=== PATIENT | female | born 1945 | race Caucasian/White ===

== ENCOUNTER → 2017-11-12 11:32 | Outpatient (CLI) | payer OTHER, SELFPAY ==
--- NOTE | 2017-11-12 | DI.MRI.S_ITS ---
PROCEDURE: MR KNEE RT WO CON INDICATIONS: OSTEOARTHRITIS OF RIGHT KNEE TECHNIQUE: Noncontrast sagittal PD fast spin echo and T2 fast spin echo with fat saturation, sagittal 3-D FLASH with fat saturation; coronal T1 spin echo and PD fast spin echo with fat saturation, and axial PD fast spin echo with fat saturation through the knee. COMPARISON: [facility], CR, XR KNEE ARTHRITIC SERIES RT, 10/20/2017, 11:00. FINDINGS: Image quality: Excellent. Menisci: The anterior and posterior horns of the medial meniscus are quite small in size, suggestive of post-meniscectomy sequelae. Irregular high T2 signal intensity within the anterior and posterior horns of the medial meniscus is present, compatible with sequelae of remote tears. There is medial extrusion of the medial meniscus. The lateral meniscus demonstrates linear high signal intensity horizontally traversing the posterior horn and body, demonstrating inferior and superior articular surface extension, indicating complex tearing. Cruciate ligaments: The posterior cruciate ligament is intact. The anterior cruciate ligament is severely attenuated. Medial structures: The medial collateral ligament appears intact. The posterior oblique ligament, semimembranosus tendon insertions, oblique popliteal ligament, and meniscocapsular junction appear intact. Visualized portions of the pes anserinus tendons appear normal. No abnormal bursal fluid. Lateral structures: Small amount of fluid signal intensity at the femoral insertion site of the lateral collateral ligament is present.. The popliteus tendon appears normal; the popliteofibular ligament appears intact. The posterosuperior and anteroinferior popliteomeniscal fascicles appear intact. The arcuate and fabellofibular ligaments appear intact, on either side of the lateral inferior geniculate artery. Iliotibial band appears normal. Anterior structures: The quadriceps and patellar tendons appear intact. Patellar alignment is normal. No femoral trochlear dysplasia or ventral trochlear prominence. No edema in the infrapatellar fat pad. Bones and cartilage: No bone marrow contusions or fractures. Severe tricompartmental periarticular osteophyte formation. Subchondral degenerative marrow edema and intraosseous ganglia within the weightbearing aspects of the medial femoral condyle, medial tibial plateau, lateral patellar facet, and lateral femoral trochlea are present. Severe diffuse articular cartilage loss overlies the weightbearing aspects of the medial femoral condyle and medial tibial plateau. Moderate to severe diffuse articular cartilage loss overlies the weightbearing aspects of the lateral femoral condyle and lateral tibial plateau. Severe articular cartilage loss diffusely overlies the patellar apex, lateral patellar facet, and lateral femoral trochlea. Joint space: There is a moderate knee joint effusion and a moderate Gould's cyst. Normal appearing synovial plicae are incidentally noted. IMPRESSION: 1. Severe tricompartmental osteoarthritis with associated articular cartilage loss as above. 2. Medial and lateral meniscal tearing. Present post meniscectomy sequelae involving the medial meniscus. 3. Knee joint effusion and Gould's cyst. 4. Partial-thickness lateral collateral ligament tear. 5. High-grade partial-thickness tearing of the anterior cruciate ligament. Dictated by: Dylan Govea M.D. on 11/12/2017 at 12:47 Approved by: Dylan Govea M.D. on 11/12/2017 at 12:51
== END ==
PROVIDERS: PCP Family Medicine; Visit Provider Orthopaedic Surgery
DX: M17.11 Unilateral primary osteoarthritis, right knee (principal); S83.281A Other tear of lateral meniscus, current injury, right knee, initial encounter; S83.241A Other tear of medial meniscus, current injury, right knee, initial encounter; S83.421A Sprain of lateral collateral ligament of right knee, initial encounter; S83.511A Sprain of anterior cruciate ligament of right knee, initial encounter; M71.21 Synovial cyst of popliteal space [Baker], right knee
CPT/HCPCS: 73721

== ENCOUNTER 2018-01-06 10:43 | Inpatient (IN) | payer OTHER, SELFPAY ==
[2017-12-24 09:56] VITALS: BMI 29.7
[2018-01-06] VITALS (14 sets, daily range): BP systolic 97–158; BP diastolic 50–86; PULSE 50–64; RESP 12–20; TEMP 36–37.2; O2SAT 93–100; BMI 29.7
--- NOTE | 2018-01-06 | DI.RAD.S_ITS ---
PROCEDURE: XR KNEE RT 1TO2V INDICATIONS: POST OP KNEE REPLACEMENT TECHNIQUE: 2 view(s) of the knee acquired. COMPARISON: [facility], XR KNEE ARTHRITIC SERIES RT, 10/20/2017, 11:00. FINDINGS: Bones: Patient is status post knee joint arthroplasty. Hardware components are in expected positions. Visualized bony structures are intact. Soft tissues: Overlying postoperative changes are noted. IMPRESSION: Acute postoperative changes of total right knee arthroplasty Dictated by: Mane Haile M.D. on 01/06/2018 at 16:42 Approved by: Mane Haile M.D. on 01/06/2018 at 16:43
[2018-01-06] MEDS: ACETAMINOPHEN 325 MG TABLET 975 MG PO ×2 (11:58→20:18)
[2018-01-06] MEDS: CELECOXIB 200 MG CAPSULE PO (11:58)
[2018-01-06] MEDS: PREGABALIN 75 MG CAPSULE PO (11:58)
[2018-01-06] MEDS: LACTATED RINGERS 1,000 ML 42 ML IV ×2 (12:02→15:35)
--- NOTE | 2018-01-06 13:19 | PM.PREOP ---
Pre-operative Note Interval Note Pre-op Check: Yes History & Physical Reviewed by Physician and Yes Exam Performed Changes: No
--- NOTE | 2018-01-06 13:21 | P.OP_ITS ---
Operative Date/Time/Diagnoses Date of procedure: 01/06/18 Time of procedure: 15:47 Pre-op diagnosis: Right knee osteoarthritis Post-op diagnosis: same Procedure & Clinicians Procedure: Right total knee arthroplasty Same procedure as scheduled: Yes Indications: The patient presents today for total knee arthroplasty after failure of conservative treatment. The nature of the procedure including the risks and benefits, alternatives, postoperative course and expected outcome were discussed and all questions answered. Consent was obtained. Operative site confirmed and marked. Surgeon: Chris Colbert Decontamination Worker: Sherri Carvajal Anesthesia Type: General, Spinal and Local Operative Notes Findings: Severe osteoarthritis with varus alignment. Closure Type: primary Specimen(s): none sent Implants & Drains: [employer] Gregory BCS: 5 femoral component, 5 tibial component, 10 mm BCS polyethylene tray and 32 x 7.5 mm round patella Applied: implant(s) Estimated Blood Loss (mL): 50 Blood products transfused: none Tourniquet time (min): 25 Procedure in detail: The patient was taken to the operative suite and placed under general and spinal anesthesia. The patient was given prophylactic antibiotics prior to surgery. The patient was also given tranexamic acid, 1 g, just prior to surgery for postoperative hemostasis. [The lateral knee was prepped and the joint injected with 20 mL of 1% Lidocaine with epinephrine. ] The knee was then prepped and draped in usual sterile fashion. The leg was exsanguinated with an Esmarch dressing and the tourniquet raised to [250] torr. A 15 cm anterior incision was made. Next a medial trivector arthrotomy was made. The extensor mechanism was marked to ensure accurate repair. Initial exposing dissection was carried out medially and laterally. The knee was then extended and the patellar thickness was measured and a cut made removing approximately 7 mm of bone[ with a goal of restoring normal patellar thickness] . The patella was then sized and drilled. Some excess lateral bone was excised and the patellofemoral ligament released. The tourniquet was then released. The knee was then flexed and the [employer] femoral guide was placed. The anterior pins were placed and the distal rotation holes drilled. The distal cutting guide was placed and the templated distal femoral cut was made. The templating cutting block was then placed and the anterior, posterior and chamfer cuts made. The [employer] tibial guide was placed and the alignment checked along the axis of the proximal tibial with a bakari. The proximal tibial cut was then made with an oscillating saw. All meniscus and bony debris was then removed. Flexion extension gaps were checked. [No specific balancing was required other than routine exposure and removal of osteophytes]. The soft tissues were then injected with a combination of [20 mL of half percent Marcaine with epinephrine and 20 mL of Exparel]. The trial components were then placed. The knee went into full extension and flexion beyond 120?. There was [excellent] medial- lateral balance throughout motion. Patellar tracking was [excellent]. The trial components were removed and size is confirmed for the final implants. The knee was then exsanguinated with an Esmarch dressing and the tourniquet reapplied for cementing. The knee was cleansed with Pulsavac irrigation and dried. The final components were cemented in with high viscosity vacuum mixed bone cement with antibiotics. The knee was held in extension and the patellar clamp until the cement had adequately cured. The knee was then irrigated with dilute Betadine solution. The extensor mechanism was closed with 5 interrupted #1 Vicryl sutures in 90 degrees of flexion. [The joint was then injected with a combination of 1 g of tranexamic acid and 20 mL of quarter percent Marcaine with epinephrine.] The subcutaneous tissue was closed with 2-0 Vicryl. The skin was closed with [ emerson and surgical adhesive]. [ An Aquacell] dressing and Jimbo wrap were then applied. Complications: none Condition: stable Disposition: PACU Plan for aftercare: Routine [facility] protocol for total knee arthroplasty. Aspirin for DVT prophylaxis.
--- NOTE | 2018-01-06 14:07 | SUR.PREOP ---
Block start time [1358] . Monitoring initiated and maintained throughout procedure. Oxygen and medications given per anesthesiologist instructions. Patient remained stable throughout procedure, no adverse reactions noted. Block end time [1406].
--- NOTE | 2018-01-06 14:15 | SUR.PREOP ---
pt monitored on case monitor and pulse ox until pt to go to surgery. Pt awake and talking. denies any complaints.
[2018-01-06] MEDS: CEFAZOLIN 2 GM/100 ML FROZ.PIGGY IV ×2 (14:21→20:20)
--- NOTE | 2018-01-06 14:59 | PM.PROC.1 ---
Procedures Date/Time Date of procedure: 01/06/18 Time of procedure: 14:00 General Procedure description: Ultrasound guided adductor canal nerve block for post op pain control after right TKA by Dr. Colbert. Risk and benefits of procedure discussed with patient. ASA monitoring applied to patient. O2 given via nasal cannula. 1 mg Versed and 50 mcg fentanyl given for procedural sedation. Skin site was prepped with chlorhexidine and allowed to fully dry. Sterile gloves, mask, hat and probe cover were used to maintain sterility. 2% lidocaine and 30ga needle was used to make a small skin wheal at needle insertion site. Under ultrasound guidance, a 21ga 100mm Pajunk needle was directed into the adductor canal near femoral artery and saphenous nerve at the level of mid thigh. Patient reported no parasthesias. After negative aspiration, 20 mL 0.5% ropivicaine and 10mg dexamethasone were injected around saphenous nerve. Patient tolerated procedure well.
[2018-01-06] MEDS: BUPIVACAINE 0.5% (PF) 10 ML, TRANEXAMIC ACID 1,000 MG, SODIUM CHLORIDE 0.9% 20 ML INJ (15:12)
[2018-01-06] MEDS: BUPIVACAINE 0.5% W/ EPI (PF) 20 ML, BUPIVACAINE LIPOSOME 266 MG, SODIUM CHLORIDE 0.9% 2... INJ (15:13)
[2018-01-06] MEDS: POVIDONE-IODINE 15 ML, SODIUM CHLORIDE 0.9% 250 ML TOP (15:15)
--- NOTE | 2018-01-06 15:16 | SUR.OPER ---
Supine on padded OR bed. Pillow under head, arms secured on padded armboards <90 degree abduction. Safety belt across torso. Non-operative leg secured with tape over blanket over lower leg. Operative leg secured in DeMayo/Ez positioner. Foam padded brace at thigh of operative leg.
--- NOTE | 2018-01-06 16:51 | SUR.PHASEI ---
Sharps test gives umbilicus as level on discharge, however she can move her toes and even has some feeling there now. Uneventful PACU stay. No shivering.
[2018-01-06] MEDS: OXYCODONE IR 5 MG TABLET PO ×2 (17:12→20:17)
[2018-01-06] MEDS: LACTATED RINGERS 1,000 ML 125 ML IV (17:12)
[2018-01-06] MEDS: ASPIRIN EC 81 MG TABLET PO (20:18)
[2018-01-07 00:03] VITALS: BP 141/78; PULSE 62; RESP 16; TEMP 36.6; O2SAT 96
[2018-01-07] MEDS: OXYCODONE IR 5 MG TABLET PO ×4 (00:03→13:00)
[2018-01-07] MEDS: LACTATED RINGERS 1,000 ML 125 ML IV (01:53)
[2018-01-07] MEDS: LEVOTHYROXINE 88 MCG TABLET PO (05:51)
[2018-01-07 05:52] LABS: Hematocrit 35.1 % (36-46); Hemoglobin 12.1 g/dL (12.0-16.0)
[2018-01-07] MEDS: CEFAZOLIN 2 GM/100 ML FROZ.PIGGY IV (05:52)
[2018-01-07 05:58] VITALS: BP 136/70; PULSE 59; RESP 16; TEMP 36.4; O2SAT 97
--- NOTE | 2018-01-07 06:39 | PC.NURSE ---
Pt ambulated twice to the [facility]. sensation is finally coming back to normal. pt still having some numbness to the arch of her R.foot.
--- NOTE | 2018-01-07 07:33 | PM.DS.1 ---
History of Present Illness Date Patient Seen: 01/07/18 Time Patient Seen: 07:26 Chief complaint: 88262 RIGHT TOTAL KNEE ARTHROPLASTY Narrative: Patient is seen bedside postop day 1. Status post right TKA. Doing well pain is well controlled and she has been up and ambulating with a walker. She has not yet worked with physical therapy. She denies SOB, calf pain, and CP. Discharge Providers Date of admission: 01/06/18 10:43 Primary care physician: Beth Srinivasan MD Consults: 01/06/18 17:01 Consult to Discharge Planning Routine Comment: Consult to Physical Therapy Evaluate & Treat Comment: Physician Instructions: postop TKA protocol Consult to Respiratory Therapy Evaluate & Treat Comment: Physician Instructions: Evaluate and treat Discharge provider: Sherri Carvajal PA-C Summary Discharge Diagnosis: right knee osteoarthritis Hospital Course: Patient was admitted on 01/06/2018 status post right total knee arthroplasty. Patient tolerated the procedure well no major complications. She was transferred to the acute care floor and seen by Physical therapy who recommended that she be discharged home with outpatient PT. Patient was stable and ready for d/c on 01/07/18. Status at Discharge Cognitive/behavioral status at discharge: A&Ox4 Functional status at discharge: uses cane/walker Overall status at discharge: patient is progressing back to baseline Time Spent with Patient Less than 30 minutes Exam Vital Signs (past 8 hours): - 01/07/18 00:03 01/07/18 05:58 Temperature 97.9 F 97.6 F Pulse Rate 62 59 L Respiratory Rate 16 16 Blood Pressure 141/78 H 136/70 H Pulse Oximetry 96 97 Oxygen Delivery Method Room Air Oxygen Flow Rate 0 Narrative Exam Narrative: Patient is well-developed well-nourished in no acute distress. Patient alert and oriented x3. Surgical dressing over the right knee is clean dry and intact with no signs of discharge. Calf is soft and compressible. She has full range of motion of the ankle. She is neurovascularly intact this extremity. Objective Labs Result Diagrams: 01/07/18 05:21 Labs: Laboratory Results - last 24 hr 01/07/18 05:21 Hgb 12.1 Hct 35.1 L Discharge Plan Discharge Plan Patient Disposition: Home, Self-Care Discharge Med Rec/Prescriptions Prescriptions: New acetaminophen 325 mg Tablet 975 mg PO TID Qty: 0 RF: 0 aspirin 81 mg Tablet,Delayed Release (Dr/Ec) 81 mg PO BID Qty: 0 RF: 0 oxycodone 5 mg Tablet 5 mg PO Q3HR PRN (Reason: Pain, Moderate (4-6)) Qty: 0 RF: 0 Continue levothyroxine 88 mcg Capsule 88 mcg PO DAILY RF: 0 Discontinued ibuprofen [Advil] 200 mg Tablet 2 tab PO DAILY PRN (Reason: pain) RF: 0 Provider Discharge Instructions Diet: Diet as Tolerated Activity: WBAT use walker to ambulate Cold/Heat Therapy: Ice at least 20 minutes every hour while awake Wound Care Report to your healthcare provider any signs of infection, such as:: chills, fever, night sweats, increased pain and unusual drainage Dressing: Keep Aquacel dressing clean and dry. May remove sarita wrap tomorrow Visit Report/Discharge Packet Instructions: DI for Knee Replacement Visit Report Forms: Stroke Signs & Symptoms Discharge Data Primary Care Provider: Beth Srinivasan Attending Provider: Chris Colbert Admit Date/Time: 01/06/18 10:43 Quality VTE Deep Vein Thrombosis/Pulmonary Embolism Present on Admission: No
[2018-01-07 08:00] VITALS: BP 143/66; PULSE 60; RESP 16; TEMP 36.5; O2SAT 98
[2018-01-07] MEDS: ACETAMINOPHEN 325 MG TABLET 975 MG PO (08:55)
--- NOTE | 2018-01-07 09:15 | PT.IIE ---
Current Diagnoses Unilateral primary osteoarthritis, right knee (01/06/18) Surgery Performed Operation Date: 01/06/18 12:45 Actual Procedures p Total Knee Arthroplasty(Right) - Chris Colbert MD Surgical History (Last Updated 12/24/17 @ 10:13 by Catherine Larson RN) History of arthroscopy of both knees (Acute) Hx of dilation and curettage (Acute) Hx of ovarian cystectomy (Acute) Hx of tonsillectomy (Acute) Medical History (Last Updated 12/24/17 @ 10:13 by Catherine Larson RN) Arthritis (Acute) BCC (basal cell carcinoma) (Acute) Back pain (Acute) Bradycardia (Acute) Diverticulosis (Acute) Hypothyroid (Acute) Physical Therapy Inpatient Evaluation/Re-Eval M1 PT/OT-IP Prior Functional Status Start: 01/07/18 12:29 Freq: NEEDED Status: Active Protocol: Document 01/07/18 09:15 AB (Rec: 01/07/18 12:41 AB [id number]) Medical Review Prior Functional Status Medical History Reviewed Yes Communication able to make needs known Mobility and Gait stated that she is independent with all mobilities and ambulation without AD Social History Household Members spouse family Living Arrangements House Number of Floors (Floors) Two Floors Number of Stairs To Enter/Railing? pt will stay on main level of the house has 4 steps to enter from the garage with a 1/2 wall/ledge on R ascending Home Environment Standard Height Toilet Tub/Shower Home Equipment Front Wheel Walker Straight Cane Raised Toilet Seat w/Armrests Tub Transfer Bench Grab Bars In Shower Employment Status Retired M2 PT-IP Current Condition Start: 01/07/18 12:29 Freq: NEEDED Status: Active Protocol: Document 01/07/18 09:15 AB (Rec: 01/07/18 12:41 AB [id number]) Physical Therapy Current Condition Current Condition Evaluation Date 01/07/18 Treatment Diagnosis s/p R TKA Onset Date 01/06/18 Weight Bearing Status Weight Bearing Status Weight Bear as Tolerated M3 PT-IP Subjective Start: 01/07/18 12:29 Freq: NEEDED Status: Active Protocol: Document 01/07/18 09:15 AB (Rec: 01/07/18 12:41 AB [id number]) Subjective Physical Therapy Visit Type Type Initial Evaluation Visit Start Time 09:15 Visit Stop Time 10:12 Total Visit Minutes 58 Number of PHYSICAL EDUCATION TEACHER Visits 0 Physical Therapy Visit Comments Patient Comments pt agreeable to do therapy Therapy Pain Assessment Pain When Pain Assessed At Rest Pain Present Pain Present Pain Reported Location Right Knee Intensity 8 Scale Used Numeric (1 - 10) Pain Management Techniques Apply Cold Timing of Activity with Medications M4 PT-IP Mobility and Gait Start: 01/07/18 12:29 Freq: NEEDED Status: Active Protocol: Document 01/07/18 09:15 AB (Rec: 01/07/18 12:41 AB [id number]) PT-Bed Mobility Assessment Supine to Sit Supine to Sit Standby Assistance Scooting Scooting to Edge of Bed Standby Assistance PT-Transfer Assessment Sit to and From Stand Sit to and from Stand Standby Assistance Equipment Transfer Assistive Device Gait Belt Front Wheeled Walker Orthotic/Prosthetic Devices or Brace: No Transfers Transfer Destination Chair Transfer Technique Stand Step Pivot Transfer Ability Level of Assist Contact Guard Assistance 1 Person Assistance Comments Mobility Comments educated pt on sit <>stand techniques and completed x 4 reps with initial CGA but able to complete with SBA after a few reps. Gait Assessment Gait Gait Assistance Required: Contact Guard Assist Distance (Feet) (feet) 100 Able to Maintain Weight Bearing Status Yes During Gait Assistive Devices Assistive Device Gait Belt Front Wheeled Walker Orthotic/Prosthetic Devices or Brace: No Gait Deviations General Gait Pattern Antalgic Decreased Stride Length Decreased Feet Clearance Factors Limiting Gait Function Factors Limiting Gait Function Decreased Activity Tolerance Decreased Strength Limited Range of Motion Pain Poor Balance Poor Safety Awareness Stair Climbing Assessment Evaluation Level of Assist On Stairs Contact Guard Assistance Devices Stair Climbing Assistive Devices Left Railing Technique/Endurance Stair Climbing Direction Ascend and Descend Stair Climbing Technique Step to Step Number of Steps Climbed 3 Query Text: Stair Climbing Set # Repetitions (reps) 2 PT-Balance Assessment Sitting Balance and Reactions Static Sitting Balance Ability Good Dynamic Sitting Balance Ability Good Standing Balance and Reactions Static Standing Balance Ability Fair Dynamic Standing Balance Ability Fair Device Used FWW M5 PT-IP Objective Assessments Start: 01/07/18 12:29 Freq: NEEDED Status: Active Protocol: Document 01/07/18 09:15 AB (Rec: 01/07/18 12:41 AB [id number]) Orientation Orientation/Cognition Level of Alertness Alert Orientation Name Age Birthday Month Date Year Day of Week Place Situation Safety Awareness Understands Safety Issues Gross Range of Motion Lower Extremity ROM Assessment Right Impaired Strength Lower Extremity Strength Assessment Right Impaired Knee 4-/5 Coordination Assessment Gross Coordination Gross Coordination WNL Sensation Assessment Sensation Gross Sensation WNL M6 PT-IP Treatment Start: 01/07/18 12:29 Freq: NEEDED Status: Active Protocol: Document 01/07/18 09:15 AB (Rec: 01/07/18 12:41 AB [id number]) Physical Therapy Treatment Exercises Exercises Ankle Pumps Gluteal Sets Heel Slides Education Education Provided Precautions Weight Bearing Status Post-Op Packet Safety M7 PT-IP Assessment and Plan Start: 01/07/18 12:29 Freq: NEEDED Status: Active Protocol: Document 01/07/18 09:15 AB (Rec: 01/07/18 12:41 AB [id number]) PT Summary Assessment and Plan Potential Rehabilitation Potential Good Status of Condition at Evaluation Stable Summary Impairments Pain ROM Strength Balance Coordination Sensation Tone Cognition Bed Mobility Transfers Gait Activity Tolerance Assessment Summary pt requiring SBA to CGA with mobility and will have spouse to assist her at home. pt may go home when medically stable . Goals Bed Mobility Goal Independent Transfer Goal Independent Gait Goal Independent Gait Distance 150 Other Goals up/down 4 steps with L rail ascending SBA Days to Meet Goals 3 Frequency of Treatment Frequency Of Treatment Twice a Day Treatment Plan Physical Therapy Treatment Plan Bed Mobility Training Transfer Training Gait Training Therapeutic Exercise Balance Retraining Post Op Education Discharge Planning Hot or Cold Pack Neuromuscular Re-ed Coordination Retraining Manual Therapy Recommendations To Nursing Amount of Assist Needed 1 Person Assist Discharge Recommendations PT Discharge Recommendations Home with Assistance Outpatient PT
[2018-01-07] MEDS: ASPIRIN EC 81 MG TABLET PO (13:01)
--- NOTE | 2018-01-07 14:56 | CM.IDA ---
DCP Assessment/DC Note: Pt is a 72 yo female, resident of [place], [place]. Pt admited for scheduled knee surgery w/ Dr Colbert. Pt's PCP is Beth Srinivasan; Insurance is [employer] [facility]. Pt lives w/spouse, indp in all ADLs. PT recoomeds return home. No barriers to safe return home w/spouse and outpt PT. Met w/pt and spouse briefly, [place]they deny needs from this COACH TOUR DRIVER. Rosalind Nunez, COACH TOUR DRIVER
== END 2018-01-07 13:25 | disposition home or self-care (01) | DRG 470 ==
PROVIDERS: Admitting Provider Orthopaedic Surgery; PCP Family Medicine; Visit Provider Orthopaedic Surgery
PROC: 0SRC0JZ Replacement of Right Knee Joint with Synthetic Substitute, Open Approach (ICD-10-PCS; CPT 27447; principal; 2018-01-06 12:45)
DX: M17.11 Unilateral primary osteoarthritis, right knee (principal); E03.9 Hypothyroidism, unspecified
CPT/HCPCS: 36415; 64450; 73560; 85014; 85018; 97116; 97161; 97530; C1776; C9290; J0690; J1100; J2250; J2704; J2795; J3010

== ENCOUNTER → 2018-03-18 11:32 | Outpatient (CLI) | payer OTHER, SELFPAY ==
[2018-01-06 13:18] VITALS: BMI 29.7
--- NOTE | 2018-03-18 | DI.MG.S_ITS ---
BILATERAL DIGITAL SCREENING MAMMOGRAM 3D/2D WITH CAD: 03/18/2018 CLINICAL: Routine screening. Comparison is made to exams dated: 08/31/2008 mammogram - [facility], 12/30/2016 mammogram, and 11/13/2015 mammogram - [facility]. The tissue of both breasts is heterogeneously dense. This may lower the sensitivity of mammography. Current study was also evaluated with a Computer Aided Detection (CAD) system. No significant masses, calcifications, or other findings are seen in either breast. There has been no significant interval change. IMPRESSION: NEGATIVE There is no mammographic evidence of malignancy. A 1 year screening mammogram is recommended.(03/19/2019) This exam was interpreted at Station ID: [id number]. NOTE: For mammograms, a report in lay terms will be sent to the patient. Approximately 15% of breast malignancies will not be visualized mammographically. In the management of a palpable breast mass, a negative mammogram must not discourage biopsy of a clinically suspicious lesion. Electronically Signed By: Chris townsend/tonya:03/18/2018 16:58:53 letter sent: Normal Exam ACR BI-RADS Category 1: Negative [id number]
== END ==
PROVIDERS: PCP Family Medicine; Visit Provider Family Medicine
DX: Z12.31 Encounter for screening mammogram for malignant neoplasm of breast (principal)
CPT/HCPCS: 77063; 77067

== ENCOUNTER → 2018-06-21 12:45 | Outpatient (CLI) | payer OTHER, SELFPAY ==
[2018-01-06 13:18] VITALS: BMI 29.7
--- NOTE | 2018-06-21 | DI.MRI.S_ITS ---
PROCEDURE: MR LUMBAR SPINE WO CON INDICATIONS: Low back and left hip pain TECHNIQUE: Noncontrast sagittal T1 spin echo and T2 fast echo, coronal T2, sagittal STIR, axial T1 and T2 fast spin echo through the lumbar spine. COMPARISON: [facility], , L-SPINE WITHOUT CONTRAST, 07/13/2013, 10:44. [facility], CR, XR LUMBAR SPINE 2 OR 3 VIEWS, 06/14/2018, 13:26. FINDINGS: Image quality: Excellent. Alignment and Curvature: 5 lumbar type vertebral bodies are present by plain film. There is moderate diffuse leftward curvature of the lumbar spine, as before. Mild, grade 1 retrolisthesis of L1 on L2 and L2 on L3. Mild grade 1 anterolisthesis of L4 on L5. Bone Marrow: Marrow is of normal overall signal. No acute vertebral body compression fractures. Mild reactive signal within the endplates adjacent to the T12-L1, L1-L2, L2-L3, L3-L4, and L4-L5 intervertebral discs. Spinal Cord: Conus medullaris terminates at the upper L1 level. Visualized cord demonstrates normal signal and size. Paraspinous Soft Tissues: No paravertebral masses. L1-L2: Moderate disc height loss and desiccation. Mild diffuse disc bulge. Mild bilateral facet hypertrophy. Mild canal stenosis. Mild bilateral foraminal stenosis. No change. L2-L3: Severe disc height loss and desiccation. Mild diffuse distal/osteophyte. Mild bilateral facet hypertrophy. Moderate canal stenosis. Mild foraminal stenosis bilaterally. No change. L3-L4: Moderate disc height loss and desiccation. Moderate diffuse disc bulge. Moderate bilateral facet and ligamentum flavum hypertrophy. Mild epidural lipomatosis. Severe canal stenosis. Moderate subarticular foraminal stenosis bilaterally. No change. L4-L5: Moderate disc height loss and desiccation. Mild diffuse disc bulge with superimposed broad-based left far lateral protrusion. Moderate bilateral facet and ligamentum flavum hypertrophy. Mild epidural lipomatosis. No change in moderate to severe canal stenosis. Increased, moderate subarticular left foraminal stenosis. No change in mild right foraminal stenosis. L5-S1: Moderate disc height loss and desiccation. Mild diffuse disc bulge. Moderate bilateral facet hypertrophy. Mild canal stenosis. Mild foraminal stenosis bilaterally. No change. IMPRESSION: 1.Multilevel degenerative disc and facet disease, as well as ligamentum flavum hypertrophy and epidural lipomatosis. 2. Multilevel canal stenoses, worse at L3-L4 and L4-L5 as described above. 3. Multilevel foraminal stenoses, worst at L3-L4 bilaterally, and at L4-L5 on the left. Dictated by: Dylan Govea M.D. on 06/21/2018 at 14:24 Approved by: Dylan Govea M.D. on 06/21/2018 at 14:32
== END ==
PROVIDERS: PCP Family Medicine; Visit Provider Orthopaedic Surgery
DX: M54.5 Low back pain (principal); M25.552 Pain in left hip; M51.16 Intervertebral disc disorders with radiculopathy, lumbar region; M51.17 Intervertebral disc disorders with radiculopathy, lumbosacral region; M48.061 Spinal stenosis, lumbar region without neurogenic claudication; M48.07 Spinal stenosis, lumbosacral region; E88.2 Lipomatosis, not elsewhere classified
CPT/HCPCS: 72148

== ENCOUNTER → 2019-04-18 10:35 | Outpatient (CLI) | payer OTHER, SELFPAY ==
[2018-01-06 13:18] VITALS: BMI 29.7
--- NOTE | 2019-04-18 | DI.MG.S_ITS ---
BILATERAL DIGITAL SCREENING MAMMOGRAM 3D/2D WITH CAD: 04/18/2019 CLINICAL: Routine screening. Comparison is made to exams dated: 03/18/2018 mammogram - [facility], 12/30/2016 mammogram, and 11/13/2015 mammogram - [facility]. The tissue of both breasts is heterogeneously dense. This may lower the sensitivity of mammography. Current study was also evaluated with a Computer Aided Detection (CAD) system. There is a new equal density asymmetry in the left breast posterior depth central to the nipple seen on the mediolateral oblique view only. No other significant masses, calcifications, or other findings are seen in either breast. IMPRESSION: INCOMPLETE: NEEDS ADDITIONAL IMAGING EVALUATION The new equal density asymmetry in the left breast is indeterminate. Additional views with possible ultrasound are recommended. This exam was interpreted at Station ID: [id number]. NOTE: For mammograms, a report in lay terms will be sent to the patient. Approximately 15% of breast malignancies will not be visualized mammographically. In the management of a palpable breast mass, a negative mammogram must not discourage biopsy of a clinically suspicious lesion. Electronically Signed By: Christian Mcintosh M.D. aty/:04/18/2019 11:32:25 letter sent: Additional Imaging Needed ACR BI-RADS Category 0: Incomplete 3340F
== END ==
PROVIDERS: PCP Family Medicine; Visit Provider Family Medicine
DX: Z12.31 Encounter for screening mammogram for malignant neoplasm of breast (principal)
CPT/HCPCS: 77063; 77067

== ENCOUNTER → 2019-05-18 13:41 | Outpatient (CLI) | payer OTHER, SELFPAY ==
[2018-01-06 13:18] VITALS: BMI 29.7
--- NOTE | 2019-05-18 | DI.MG.S_ITS ---
UNILATERAL LEFT DIGITAL DIAGNOSTIC MAMMOGRAM 3D/2D WITH ADDITIONAL VIEWS: 05/18/2019 CLINICAL: Additional evaluation requested from prior study. Comparison is made to exams dated: 04/18/2019 mammogram, 03/18/2018 mammogram - [facility], and 12/30/2016 mammogram - [facility]. The tissue of left breast is heterogeneously dense. This may lower the sensitivity of mammography. The previously described 0.8 cm oval equal density focal asymmetry in the left breast posterior depth central to the nipple seen laterally on the craniocaudal view persists on additional imaging. No other significant masses or calcifications are seen in the breast. IMPRESSION: INCOMPLETE: NEEDS ADDITIONAL IMAGING EVALUATION The 0.8 cm oval equal density focal asymmetry in the left breast is indeterminate. Further evaluation with sonogram is recommended which is scheduled to immediately follow this examination. This exam was interpreted at Station ID: [id number]. NOTE: For mammograms, a report in lay terms will be sent to the patient. Approximately 15% of breast malignancies will not be visualized mammographically. In the management of a palpable breast mass, a negative mammogram must not discourage biopsy of a clinically suspicious lesion. Electronically Signed By: Christian Mcintosh M.D. aty/:05/18/2019 14:08:55 ACR BI-RADS Category 0: Incomplete 3340F
--- NOTE | 2019-05-18 | DI.US.S_ITS ---
ULTRASOUND OF LEFT BREAST: 05/18/2019 CLINICAL: Patient returns today to evaluate a focal asymmetry in the left breast. Comparison is made to exams dated: 05/18/2019 mammogram, 04/18/2019 mammogram, 03/18/2018 mammogram - [facility], 12/30/2016 mammogram, 11/13/2015 mammogram - [facility], and 08/31/2008 mammogram - [facility]. Color flow and real-time ultrasound of the left breast were performed. Telles scale images of the real-time examination were reviewed. There is a benign 1.1 cm x 0.8 cm x 0.5 cm oval normal lymph node in the left breast at 4 o'clock posterior depth 9 cm from the nipple. This oval normal lymph node is hypoechoic with fatty hilum. This correlates with mammography findings. Color flow imaging demonstrates that there is no vascularity present. IMPRESSION: BENIGN There is no sonographic evidence of malignancy. The 1.1 cm x 0.8 cm x 0.5 cm oval mass in the left breast correlates with mammographic finding and is consistent with a normal benign lymph node. A 1 year screening mammogram is recommended. This exam was interpreted at Station ID: [id number]. Electronically Signed By: Christian Mcintosh M.D. aty/:05/18/2019 14:34:17 letter sent: Normal Exam Ultrasound BI-RADS: 2 Benign
== END ==
PROVIDERS: PCP Family Medicine; Visit Provider Family Medicine
DX: R92.8 Other abnormal and inconclusive findings on diagnostic imaging of breast (principal)
CPT/HCPCS: 76642; 77065; G0279

== ENCOUNTER → 2020-05-22 10:49 | Outpatient (CLI) | payer MEDICARE, SELFPAY ==
[2018-01-06 13:18] VITALS: BMI 29.7
--- NOTE | 2020-05-22 | DI.MG.S_ITS ---
BILATERAL DIGITAL SCREENING MAMMOGRAM 3D/2D WITH CAD: 05/22/2020 CLINICAL: Routine screening. Comparison is made to exams dated: 05/18/2019 mammogram, 04/18/2019 mammogram, and 03/18/2018 mammogram - [facility]. The tissue of both breasts is heterogeneously dense. This may lower the sensitivity of mammography. Current study was also evaluated with a Computer Aided Detection (CAD) system. There is a new 0.4 cm oval high density focal asymmetry in the left breast middle depth central to the nipple seen on the mediolateral oblique view only. No other significant masses, calcifications, or other findings are seen in either breast. IMPRESSION: INCOMPLETE: NEEDS ADDITIONAL IMAGING EVALUATION The new 0.4 cm oval high density focal asymmetry in the left breast is indeterminate. A diagnostic mammogram and ultrasound is recommended. This exam was interpreted at Station ID: [id number]. NOTE: For mammograms, a report in lay terms will be sent to the patient. Approximately 15% of breast malignancies will not be visualized mammographically. In the management of a palpable breast mass, a negative mammogram must not discourage biopsy of a clinically suspicious lesion. Electronically Signed By: Gerard Lerner acr/:05/22/2020 11:46:18 letter sent: Additional Imaging Needed ACR BI-RADS Category 0: Incomplete 3340F
== END ==
PROVIDERS: PCP Family Medicine; Referring Provider Family Medicine; Visit Provider Family Medicine
DX: Z12.31 Encounter for screening mammogram for malignant neoplasm of breast (principal)
CPT/HCPCS: 77063; 77067

== ENCOUNTER → 2020-06-25 13:30 | Outpatient (CLI) | payer MEDICARE, SELFPAY ==
[2018-01-06 13:18] VITALS: BMI 29.7
--- NOTE | 2020-06-25 | DI.US.S_ITS ---
LIMITED ULTRASOUND OF LEFT BREAST: 06/25/2020 CLINICAL: Patient returns today to evaluate a focal asymmetry in the left breast. Comparison is made to exams dated: 06/25/2020 mammogram, 05/22/2020 mammogram, 05/18/2019 ultrasound, 05/18/2019 mammogram, and 04/18/2019 mammogram - [facility]. Color flow ultrasound of the left breast was performed. Telles scale images of the real-time examination were reviewed. There is a benign 0.5 cm x 0.3 cm x 0.3 cm oval cyst with a smooth internal wall in the left breast at 3 o'clock middle depth 2 cm from the nipple. This oval cyst is anechoic. This correlates with mammography findings. IMPRESSION: BENIGN There is no sonographic evidence of malignancy. The 0.5 cm x 0.3 cm x 0.3 cm oval cyst in the left breast is benign. A 1 year screening mammogram is recommended. This exam was interpreted at Station ID: [id number]. Electronically Signed By: Mor oliveira/tonya:06/25/2020 15:32:12 letter sent: Normal Exam Ultrasound BI-RADS: 2 Benign
--- NOTE | 2020-06-25 | DI.MG.S_ITS ---
UNILATERAL LEFT DIGITAL DIAGNOSTIC MAMMOGRAM 3D/2D WITH ADDITIONAL VIEWS: 06/25/2020 CLINICAL: Additional evaluation requested from prior study. Comparison is made to exams dated: 05/22/2020 mammogram, 05/18/2019 mammogram, and 04/18/2019 mammogram - [facility]. The tissue of left breast is heterogeneously dense. This may lower the sensitivity of mammography. There is a 4 mm oval low density mass with a circumscribed margin in the left breast at 3 o'clock middle depth. This is seen in additional views. No other significant masses or calcifications are seen in the breast. IMPRESSION: INCOMPLETE: NEEDS ADDITIONAL IMAGING EVALUATION The 4 mm oval low density mass in the left breast is indeterminate. An ultrasound is recommended. This exam was interpreted at Station ID: [id number]. NOTE: For mammograms, a report in lay terms will be sent to the patient. Approximately 15% of breast malignancies will not be visualized mammographically. In the management of a palpable breast mass, a negative mammogram must not discourage biopsy of a clinically suspicious lesion. SUMMARY: Targeted ultrasound is recommended for further evaluation and will be scheduled immediately following this exam. Electronically Signed By: Mor oliveira/tonya:06/25/2020 14:52:24 ACR BI-RADS Category 0: Incomplete 3340F
== END ==
PROVIDERS: PCP Family Medicine; Referring Provider Family Medicine; Visit Provider Family Medicine
DX: R92.8 Other abnormal and inconclusive findings on diagnostic imaging of breast (principal); N60.02 Solitary cyst of left breast
CPT/HCPCS: 76642; 77065; G0279

== ENCOUNTER → 2021-07-18 10:53 | Outpatient (CLI) | payer MEDICARE, SELFPAY ==
[2021-06-19 15:48] VITALS: BMI 29.7
--- NOTE | 2021-07-18 | DI.MG.S_ITS ---
BILATERAL DIGITAL SCREENING MAMMOGRAM 3D/2D WITH CAD: 07/18/2021 CLINICAL: Routine screening. Comparison is made to exams dated: 06/25/2020 mammogram, 05/22/2020 mammogram, 05/18/2019 mammogram, 04/18/2019 mammogram, and 03/18/2018 mammogram - [facility]. There are scattered fibroglandular elements in both breasts. Current study was also evaluated with a Computer Aided Detection (CAD) system. There is an oval equal density focal asymmetry in the left breast at 2 o'clock posterior depth. This is more prominent and increased in size. No other significant masses, calcifications, or other findings are seen in either breast. IMPRESSION: INCOMPLETE: NEEDS ADDITIONAL IMAGING EVALUATION The oval equal density focal asymmetry in the left breast is indeterminate. Additional views with possible ultrasound are recommended. This exam was interpreted at Station ID: [id number]. NOTE: For mammograms, a report in lay terms will be sent to the patient. Approximately 15% of breast malignancies will not be visualized mammographically. In the management of a palpable breast mass, a negative mammogram must not discourage biopsy of a clinically suspicious lesion. Electronically Signed By: Christian werner/tonya:07/18/2021 11:53:12 letter sent: Additional Imaging Needed ACR BI-RADS Category 0: Incomplete 3340F
== END ==
PROVIDERS: PCP Family Medicine; Referring Provider Family Medicine; Visit Provider Family Medicine
DX: Z12.31 Encounter for screening mammogram for malignant neoplasm of breast (principal)
CPT/HCPCS: 77063; 77067

== ENCOUNTER → 2021-08-23 13:07 | Outpatient (CLI) | payer MEDICARE, SELFPAY ==
[2021-06-19 15:48] VITALS: BMI 29.7
--- NOTE | 2021-08-23 13:09 | DI.MG.S_ITS ---
UNILATERAL LEFT DIGITAL DIAGNOSTIC MAMMOGRAM 3D/2D WITH ADDITIONAL VIEWS: 08/23/2021 CLINICAL: Additional evaluation requested from prior study. Comparison is made to exams dated: 07/18/2021 mammogram, 06/25/2020 mammogram, and 05/22/2020 mammogram - [facility]. There are scattered fibroglandular elements in left breast. There is a 1.4 cm x 0.7 cm oval equal density focal asymmetry in the left breast at 3 o'clock posterior depth 13 cm from the nipple. This is more prominent and increased in size. No other significant masses or calcifications are seen in the breast. IMPRESSION: INCOMPLETE: NEEDS ADDITIONAL IMAGING EVALUATION The 1.4 cm x 0.7 cm oval equal density focal asymmetry in the left breast is indeterminate. An ultrasound is recommended. This exam was interpreted at Station ID: [id number]. NOTE: For mammograms, a report in lay terms will be sent to the patient. Approximately 15% of breast malignancies will not be visualized mammographically. In the management of a palpable breast mass, a negative mammogram must not discourage biopsy of a clinically suspicious lesion. Electronically Signed By: Gerard Lerner acr/:08/23/2021 13:58:16 ACR BI-RADS Category 0: Incomplete 3340F
--- NOTE | 2021-08-23 13:09 | DI.US.S_ITS ---
ULTRASOUND OF LEFT BREAST: 08/23/2021 CLINICAL: Patient returns today to evaluate a focal asymmetry in the left breast. Comparison is made to exams dated: 08/23/2021 mammogram, 07/18/2021 mammogram, 06/25/2020 ultrasound, and 06/25/2020 mammogram - [facility]. Color flow ultrasound of the left breast was performed. Telles scale images of the real-time examination were reviewed. There is a 0.8 cm x 0.8 cm x 0.7 cm irregular mass in the left breast at 1 o'clock posterior depth 10 cm from the nipple. This irregular mass displays posterior acoustic shadowing. Color flow imaging demonstrates that there is increased vascularity. IMPRESSION: SUSPICIOUS OF MALIGNANCY The 0.8 cm x 0.8 cm x 0.7 cm irregular mass in the left breast is at a high suspicion for malignancy. An ultrasound guided biopsy is recommended. This exam was interpreted at Station ID: [id number]. Electronically Signed By: Gerard Lerner acr/:08/23/2021 14:40:55 letter sent: Biopsy Required Ultrasound BI-RADS: 4c High suspicion of malignancy
== END ==
PROVIDERS: PCP Family Medicine; Referring Provider Family Medicine; Visit Provider Family Medicine
DX: R92.8 Other abnormal and inconclusive findings on diagnostic imaging of breast (principal); N63.21 Unspecified lump in the left breast, upper outer quadrant
CPT/HCPCS: 76642; 77065; G0279

== ENCOUNTER → 2023-09-29 10:42 | Outpatient (CLI) | payer MEDICARE, SELFPAY ==
[2021-06-19 15:48] VITALS: BMI 29.7
--- NOTE | 2023-09-29 | DI.MRI.S_ITS ---
PROCEDURE: MR LUMBAR SPINE WO CON INDICATIONS: Spinal stenosis, lumbar region TECHNIQUE: Noncontrast sagittal T1 spin echo and T2 fast echo, sagittal STIR, and T2 fast spin echo through the lumbar spine. In cases with scoliosis, additional coronal T2 fast spin echo may be performed. COMPARISON: [facility], MR, MR LUMBAR SPINE WO CON, 06/21/2018, 12:53. FINDINGS: Image quality: Excellent. Alignment and Curvature: There is 5 mm anterolisthesis of L4 on L5 and 4 mm anterolisthesis of L5 on S1. [id number]-[id number] levoscoliosis of thoracolumbar spine with apex at L1-2 level is seen. Bone Marrow: There is no marrow edema. No acute vertebral body compression fractures. Spinal Cord: Conus medullaris terminates at the L1 level. Visualized cord demonstrates normal signal and size. Paraspinous Soft Tissues: No paravertebral masses. T12-L1: Loss of disc height and disc signal. No significant disc bulge, canal stenosis or neural foraminal narrowing. L1-L2: Loss of disc height and disc signal. Diffuse disc bulge and bilateral facet arthrosis with hypertrophy of ligamentum flavum is seen. No significant central canal stenosis or neural foraminal narrowing. L2-L3: Loss of disc height and disc signal. Broad-based disc bulge and bilateral facet arthrosis with hypertrophy of ligamentum flavum causing moderate central canal stenosis and moderate left-sided neural foraminal narrowing. Mild right-sided neural foraminal narrowing is also seen. L3-L4: There is loss of disc height and disc signal. Broad-based disc bulge and bilateral facet arthrosis with hypertrophy of ligamentum flavum causing moderate to severe central canal stenosis and left worse than right bilateral neural foraminal narrowing. Bulging disc likely contacting bilateral exiting L3 nerve roots. L4-L5: There is loss of disc signal and disc height. Broad-based disc bulge and bilateral facet arthrosis with hypertrophy of ligamentum flavum is seen causing [id number] central canal stenosis and left worse than right bilateral neural foraminal narrowing. Bulging disc likely contacting bilateral exiting L4 nerve roots. L5-S1: Normal appearance. IMPRESSION: 1. Trcq-[id number] levoscoliosis of lumbar spine and grade 1 retrolisthesis at L4-5 and L5-S1 levels as above. No acute compression fracture. No gross marrow edema. 2. Moderate degenerative disc disease throughout lumbar spine causing various degrees of central canal stenosis and bilateral neural foraminal narrowing more notably at L3-4 and L4-5 levels as described in detail above. Dictated by: Dionicio Urias M.D. on 09/29/2023 at 16:59 Approved by: Dionicio Urias M.D. on 09/29/2023 at 17:02
== END ==
LOC: MRI 10:44
PROVIDERS: PCP Family Medicine; Referring Provider Physical Medicine & Rehabilitation; Visit Provider Physical Medicine & Rehabilitation
DX: M48.062 Spinal stenosis, lumbar region with neurogenic claudication (principal); M43.16 Spondylolisthesis, lumbar region; M43.17 Spondylolisthesis, lumbosacral region; M51.36 Other intervertebral disc degeneration, lumbar region
CPT/HCPCS: 72148

== ENCOUNTER → 2023-12-09 12:26 | Outpatient (CLI) | payer MEDICARE, SELFPAY ==
[2021-06-19 15:48] VITALS: BMI 29.7
--- NOTE | 2023-12-09 | DI.MG.S_ITS ---
BILATERAL DIGITAL SCREENING MAMMOGRAM 3D/2D WITH CAD: 12/09/2023 CLINICAL: Routine screening. Personal history of left breast cancer. Comparison is made to exams dated: 11/18/2022 mammogram - [facility], 07/18/2021 mammogram, and 05/22/2020 mammogram - [facility]. There are scattered areas of fibroglandular density in both breasts (category b / 25%-50% glandular tissue). Current study was also evaluated with a Computer Aided Detection (CAD) system. There are benign post operative findings in the left breast. No significant masses, calcifications, or other findings are seen in either breast. There has been no significant interval change. IMPRESSION: BENIGN There is no mammographic evidence of malignancy. A 1 year screening mammogram is recommended. This exam was interpreted at Station ID: [id number]. NOTE: For mammograms, a report in lay terms will be sent to the patient. Approximately 15% of breast malignancies will not be visualized mammographically. In the management of a palpable breast mass, a negative mammogram must not discourage biopsy of a clinically suspicious lesion. Electronically Signed By: Jimmy humphries/tonya:12/09/2023 13:57:37 letter sent: Normal Exam ACR BI-RADS Category 2: Benign Finding(s) 3342F
== END ==
LOC: MAMMO 12:29
PROVIDERS: PCP Family Medicine; Referring Provider Family Medicine; Visit Provider Family Medicine
DX: Z12.31 Encounter for screening mammogram for malignant neoplasm of breast (principal); Z85.3 Personal history of malignant neoplasm of breast; R92.323 Mammographic fibroglandular density, bilateral breasts
CPT/HCPCS: 77063; 77067

== ENCOUNTER → 2023-12-09 12:30 | Outpatient (CLI) | payer MEDICARE, SELFPAY ==
[2021-06-19 15:48] VITALS: BMI 29.7
--- NOTE | 2023-12-09 12:54 | EKG_ITS ---
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
[2023-12-09 13:11] LABS: Appearance Urine UA CLEAR; Bilirubin Urine UA NEGATIVE (NEGATIVE); Color Urine UA YELLOW; Glucose Urine UA NEGATIVE (Negative); Ketones Urine UA NEGATIVE (NEGATIVE); Leukocyte Esterase Urine UA NEGATIVE (NEGATIVE); Nitrite Urine UA NEGATIVE (Negative); Occult Blood Urine UA TRACE-INTACT (Negative); Protein Urine UA NEGATIVE (Negative); Specific Gravity Urine UA 1.025 (1.000-1.035); Urobilinogen Urine UA 0.2 E.U./dL (0.2)
[2023-12-09 13:22] LABS: Bacteria Urine Occasional (0-1); Culture Indicated Urine Cult Not Indicated; Mucus Urine 1+ (Negative); RBC Urine 1-5/HPF (0-5/HPF); Squamous Epithelial Cell Urine 1-5 /HPF (0-5/HPF); Urine Volume 10mL (spun); WBC Urine 0-1/HPF (0-5/HPF)
[2023-12-09 13:26] LABS: Add Manual Diff / Slide Review NO; Basophils Absolute Auto 0 /uL (0-100); Basophils Percent Auto 0.2 % (0-2); Eosinophils Absolute Auto 0 /uL (0-450); Eosinophils Percent Auto 0.4 % (2-4); Hemoglobin 13.2 g/dL (12.0-16.0); Lymphocytes Absolute Auto 1300 /uL (1100-4500); Lymphocytes Percent Auto 38.1 % (25-40); Mean Corpuscular Hemoglobin 29.9 PG (26-34); Mean Corpuscular Volume 88.1 fL (80-100); Monocytes Absolute Auto 700 /uL (0-900); Monocytes Percent Auto 20.5 % (3-14); Neutrophils Absolute Auto 1400 /uL (1500-7000); Neutrophils Percent Auto 40.8 % (50-75); Platelet Count 238 X10^3/uL (150-400); Red Blood Cell Count 4.42 X10^6/uL (4.0-5.2); Red Cell Distribution Width 14.4 % (11.6-14.8); White Blood Cell Count 3.5 X10^3/uL (4.5-11.0)
[2023-12-09 13:34] LABS: Hemoglobin A1C% w Est Avg Glu 5.6 % (4.0-6.0)
[2023-12-09 13:51] LABS: BUN Creatinine Ratio 21.5 (6-22); Blood Urea Nitrogen 14 mg/dL (7-17); Calcium 9.4 mg/dL (8.4-10.2); Carbon Dioxide 29 mmol/L (22-32); Chloride 105 mmol/L (98-107); Estimated Glomerular Filt Rate > 60 mL/min (>60); Glucose 84 mg/dL (80-110); HEMOLYSIS < 15 (0-50); Potassium 3.8 mmol/L (3.4-5.1); Sodium 141 mmol/L (137-145)
== END ==
LOC: LAB 12:31
PROVIDERS: PCP Family Medicine; Referring Provider Orthopaedic Surgery; Visit Provider Orthopaedic Surgery
DX: Z01.818 Encounter for other preprocedural examination (principal); R73.9 Hyperglycemia, unspecified; Z01.812 Encounter for preprocedural laboratory examination; N39.0 Urinary tract infection, site not specified
CPT/HCPCS: 36415; 80048; 81001; 83036; 85025; 93005

== ENCOUNTER 2024-01-28 05:53 | Day surgery (SDC) | payer MEDICARE, SELFPAY ==
[2021-06-19 15:48] VITALS: BMI 29.7
[2024-01-21 07:40] VITALS: BMI 30.8
[2024-01-28] VITALS (13 sets, daily range): BP systolic 123–158; BP diastolic 62–114; PULSE 56–76; RESP 12–18; TEMP 36.1–36.7; O2SAT 92–99; BMI 32.1
--- NOTE | 2024-01-28 | PATH_ITS ---
[facility] Accession Number: [id number] No. of containers..01 Tissue . 01 Material submitted: . knee - LEFT KNEE LIPOMA . 01 Diagnosis: LEFT KNEE, EXCISIONS: Fragments of mature fibroadipose tissue, consistent with lipoma. [facility] 02/01/2024 0837 Local . 01 Electronically signed: . Brady Velasco MD, Dermatopathologist NPI- [id number] . 01 Gross description: . Received in formalin with two patient identifiers and left knee lipoma, are two lobulated, partially encapsulated soft tissue fragments. The first (7.5 x 5.7 x 3.6 cm) is inked blue. The second (6.5 x 5.1 x 3.2 cm) is inked green. Sectioning reveals a yellow, lobulated, unremarkable cut surface. Violin Teacher sections are submitted in A1-A3. ([id number]) /MRV 01/29/2024 1422 Local . 01 Pathologist provided ICD-10: D17.9 . 01 CPT . 353753 Specimen Comment: A courtesy copy of this report has been sent to [facility] Performed at: [address] [facility] [address] [address], [place], [place] [id number] MD Chris Delgadillo MD Phone: [phone]
--- NOTE | 2024-01-28 06:41 | DI.RAD.S_ITS ---
PROCEDURE: XR KNEE LT 1TO2V INDICATIONS: TOTAL LEFT KNEE TECHNIQUE: 2 view(s) of the knee acquired. COMPARISON: None. FINDINGS: Bones: Patient is status post knee joint arthroplasty. Hardware components are in expected positions. Visualized bony structures are intact. Soft tissues: Overlying postoperative changes are noted. IMPRESSION: Expected post-operative appearance of a knee arthroplasty. Dictated by: Adwoa Hubbard M.D. on 01/28/2024 at 18:16 Approved by: Adwoa Hubbard M.D. on 01/28/2024 at 18:17
[2024-01-28] MEDS: LACTATED RINGERS 1,000 ML 42 ML IV ×2 (06:52→09:51)
[2024-01-28] MEDS: ACETAMINOPHEN 325 MG TABLET 975 MG PO (07:05)
[2024-01-28] MEDS: CELECOXIB 200 MG CAPSULE 400 MG PO (07:05)
[2024-01-28] MEDS: VANCOMYCIN 1,500 MG/300 ML PIGGYBACK 200 MG IV (07:07)
--- NOTE | 2024-01-28 07:46 | PM.PREOP ---
Pre-operative Note Interval Note History & Physical reviewed/Exam performed by Physician: Yes Changes to H&P: No
--- NOTE | 2024-01-28 07:46 | PM.OP.1 ---
Operative Date/Time/Diagnoses Date of procedure: 01/28/24 Time of procedure: 08:00 Pre-op diagnosis: left knee OA Post-op diagnosis: same Procedure & Clinicians Procedure: left total knee arthroplasty Same procedure as scheduled: Yes Indications: The patient has had progressively worsening left knee pain with radiographic changes consistent with arthritis. Non-operative management has failed and the patient has requested total knee replacement. The risks, benefits and alternatives to surgery were discussed with the patient prior to proceeding. Risks discussed included, but were not limited to, failure to relieve pain, stiffness, infection, nerve damage, deep venous thrombosis, pulmonary embolism, stroke, coma, heart attack, permanent paralysis and , as well as the potential need for eventual revision of the prosthetic. Surgeon: Mavis Farrell Human Performance Technologist: Georges Puckett Anesthesia Type: General, Spinal and Peripheral nerve block Operative Notes Findings: Severe left knee OA, adequate bone, adequate stability Closure Type: primary Specimen(s): none sent Prosthetic devices, grafts, tissues, transplants, or devices: Farrell and nephew ethanney BCS 2 size 5 femur, size 4 tibia, poly 9, 32 x 7.5 mm patella Estimated Blood Loss (mL): 250 Blood products transfused: none Tourniquet time (min): 74 Procedure in detail: The patient was seen in the pre-operative area, where the patient identified the left knee as the operative site and this was marked with my initials. The patient received pre-operative antibiotics, and was taken to the operating room and placed on the operative table in the supine position. After satisfactory anesthesia, a filament coil winder out was performed. The left leg was encircled with a tourniquet about the proximal thigh, and the leg was prepared from the toes to the tourniquet with ChloroPrep in the usual fashion and draped through sterile drapes. The leg was elevated and exsanguinated with Eschmark bandage and the tourniquet inflated to [250] mmHg pressure. A PA was used during the procedure and was essential for intraoperative retraction and safe implantation of the components. The knee was approached through an approximately 18 cm incision centered over the patella and carried into the knee through a medial parapatellar arthrotomy. Portion of the medial and lateral meniscus was resected. Soft tissue was carefully mobilized around the patella the patella was measured with a caliper. Bone was resected from the patella and the patellar height was reconstituted with up an appropriate sized patellar component. A cover was then placed on the patella. A small amount of additional medial and lateral meniscus was resected. Cori pins were placed for navigation. The knee was meticulously mapped and place her stressed range of motion. Plan was taken and developed to optimize range of motion and stability. The robotic assisted Cori bur was used for the distal femoral resection. It looked like an appropriate distal femoral cut and the cut was made without difficulty. The rotation was assessed and the appropriate size femoral guide was placed on the distal femur and finishing cuts were made. There was no evidence of notching. The anterior, posterior and chamfer cuts were then made. The posterior osteophytes and soft tissues were then removed. The posterior capsule was injected with part of a mixture of 60 ml 0.25% Marcaine mixed with 20 ml Exparel for post operative pain control. The remainder of this mixture was injected into the capsule and subcutaneous tissues during cement curing. The tibial guide was carefully navigated. The rotation was assessed. The patient was placed in extension residual medial and lateral meniscus as well as any residual bone was carefully resected. [No] additional tibia was resected. Hemostasis was achieved especially posteriorly. Additional local was injected into the posterior capsule. The extension gap was assessed. The femoral component was trial was placed and the notch was finished. Trial tibial and femoral components were then placed and the knee placed through a range of motion. Range of motion was [0-130], with good stability throughout the range. The trials were then removed, and the tibia was finished. The bone was prepared with pulsatile lavage, and dried with a sponge. Cement was applied and the final prosthetics placed. Excess cement was removed during and after cement curing. A brief Betadine soak was performed. After confirming there was no extruded cement posteriorly, the final tibial insert was placed. The knee was copiously irrigated and the tourniquet deflated. Hemostasis was obtained with the Bovie cautery. The capsule was closed with interrupted Vicryl suture. The subcutaneous layer was closed with barbed sutures, and the skin with a running 3-0 V-Lock suture and Surgical glue. An Aquacel Ag dressing was applied and the patient was taken to recovery having tolerated the procedure well. Complications: none Post-operative Condition: stable Disposition: Acute Care Plan for aftercare: The patient will be maintained on a standard total knee replacement protocol with weight bearing as tolerated. The patient will receive aspirin and sequential compression devices for DVT prophylaxis. The patient will be discharged home when safe for the home environment.
--- NOTE | 2024-01-28 08:17 | SUR.PREOP ---
Block start time [0735] . Monitoring initiated and maintained throughout procedure. Oxygen and medications given per anesthesiologist instructions. Patient remained stable throughout procedure, no adverse reactions noted. Block end time [0745].
[2024-01-28] MEDS: CEFAZOLIN 2 GM/100 ML PREMIX 100 ML IV ×3 (08:19→23:56)
[2024-01-28] MEDS: TRANEXAMIC ACID 1,000 MG VIAL 1000 MG INJ ×2 (08:26→10:18)
--- NOTE | 2024-01-28 08:39 | SUR.OPER ---
Supine on padded OR bed. Pillow under head, arms secured on padded armboards <90 degree abduction. Safety belt across torso. Non-operative leg secured with tape over blanket over lower leg. Operative leg secured in DeMayo positioner. Foam padded brace at thigh of operative leg.
[2024-01-28] MEDS: BUPIVACAINE 0.25% (PF) 60 ML, EPINEPHrine 0.3 MG INJ (08:42)
[2024-01-28] MEDS: BUPIVACAINE LIPOSOME 266 MG/20 ML VIAL INJ (08:42)
[2024-01-28] MEDS: fentaNYL 100 MCG/2 ML INJ IV ×2 (11:05→11:14)
[2024-01-28] MEDS: HYDROMORPHONE 1 MG INJ IV (11:08)
[2024-01-28] MEDS: OXYCODONE IR 5 MG TABLET PO ×4 (11:19→23:55)
--- NOTE | 2024-01-28 13:31 | PT.IIE ---
Current Diagnoses Unilateral primary osteoarthritis, left knee (01/28/24) Surgery Performed Operation Date: 01/28/24 07:45 Actual Procedures p Total Knee Arthroplasty - Robot(Left) - Mavis Farrell MD Surgical History (Last Reviewed 01/28/24 @ 06:42 by Radha Tabor, RN) History of arthroscopy of both knees History of total right knee replacement (01/06/18) Hx of dilation and curettage Hx of ovarian cystectomy Hx of tonsillectomy Medical History (Last Reviewed 01/28/24 @ 06:42 by Radha Tabor, RN) Arthritis Back pain BCC (basal cell carcinoma) Bradycardia Breast cancer Diverticulosis Hypothyroid Physical Therapy Inpatient Evaluation/Re-Eval M1 PT/OT-IP Prior Functional Status Start: 01/28/24 12:21 Freq: NEEDED Status: Active Protocol: Document 01/28/24 12:48 MB (Rec: 01/28/24 13:31 MB [id number]) Medical Review Prior Functional Status Medical History Reviewed Yes Diet/Fluid Consistency Regular Communication WNLs Mobility and Gait I Activities of Daily Living and IADL's I Social History Household Members spouse,family Living Arrangements House Number of Floors (Floors) Two Floors Number of Stairs To Enter/Railing? 3-4 steps with right rail to enter Home Environment High Toilet,Tub/Shower Home Equipment Front Wheel Walker,Straight Cane,Raised Toilet Seat w/ Armrests,Tub Transfer Bench, Grab Bars In Shower Employment Status Retired Additional Social History Comment Pt lives with her on [place] M2 PT-IP Current Condition Start: 01/28/24 12:21 Freq: NEEDED Status: Active Protocol: Document 01/28/24 12:48 MB (Rec: 01/28/24 13:31 MB [id number]) Physical Therapy Current Condition Current Condition Evaluation Date 01/28/24 Treatment Diagnosis L TKA M3 PT-IP Subjective Start: 01/28/24 12:21 Freq: NEEDED Status: Active Protocol: Document 01/28/24 12:48 MB (Rec: 01/28/24 13:31 MB [id number]) Subjective Physical Therapy Visit Type Type Initial Evaluation Visit Start Time 12:48 Visit Stop Time 13:11 Number of BREASTER Visits 0 Physical Therapy Visit Comments Patient Comments Pt states that she has high pain and that she is light- headed and she is agreeable for PT to check BP and to initiate minimal mobility this afternoon. Therapy Pain Assessment Location Left knee Intensity 5 Scale Used Numeric (0 - 10) M4 PT-IP Mobility and Gait Start: 01/28/24 12:21 Freq: NEEDED Status: Active Protocol: Document 01/28/24 12:48 MB (Rec: 01/28/24 13:31 MB [id number]) PT-Bed Mobility Assessment Supine to Sit Supine to Sit Minimal Assistance,1 Person Assistance,Head of Bed Elevated,Bedrails Sit to Supine Sit to Supine Minimal Assistance,1 Person Assistance,Head of Bed Elevated,Bedrails Scooting Scooting to Edge of Bed Minimal Assistance Scooting Up and Down in Bed Minimal Assistance PT-Transfer Assessment Comments Mobility Comments Good sitting balance EOB with UE support and pt is able to laterally scoot to the left to HOB. She declines trying to stand this afternoon. BP does not drop with supine/hook lying to sitting and BP and HR LUE: hook lying 149/96, 65; sitting 183/88, 66. PT-Balance Assessment Sitting Balance and Reactions Static Sitting Balance Ability Good Dynamic Sitting Balance Ability Good M5 PT-IP Objective Assessments Start: 01/28/24 12:21 Freq: NEEDED Status: Active Protocol: Document 01/28/24 12:48 MB (Rec: 01/28/24 13:31 MB [id number]) Orientation Orientation/Cognition Level of Alertness Alert Orientation Name,Age,Birthday,Month,Date, Year,Day of Week,Place, Situation Language Function Ability No Deficits Noted Safety Awareness Decreased Safety Awareness Memory Description No Deficits Noted Gross Range of Motion Upper Extremity ROM Impairments Defer to OT Lower Extremity ROM Assessment Left Impaired Impairments AAROM and AROM 10-70 deg supine for extension and sitting EOB for flexion Strength Comments Strength Comments Pt does not tolerate MMT LLE today and right LE appears functional and ankles are functional Coordination Assessment Gross Coordination Gross Coordination Impaired Sensation Assessment Sensation Gross Sensation WNL Comments Sensation Comments No sensory changes with light touch testing with PT today Muscle Tone Muscle Tone WNL Yes M6 PT-IP Treatment Start: 01/28/24 12:21 Freq: NEEDED Status: Active Protocol: Document 01/28/24 12:48 MB (Rec: 01/28/24 13:31 MB [id number]) Physical Therapy Treatment Exercises Exercises Ankle Pumps,Gluteal Sets,Quad Sets Education Education Provided Weight Bearing Status,Post-Op Packet,Safety Other Treatments Other Treatment Performed Ed pt on HS when she cane M7 PT-IP Assessment and Plan Start: 01/28/24 12:21 Freq: NEEDED Status: Active Protocol: Document 01/28/24 12:48 MB (Rec: 01/28/24 13:31 MB [id number]) PT Summary Assessment and Plan Potential Rehabilitation Potential Good Status of Condition at Evaluation Evolving Summary Impairments Pain,ROM,Strength,Balance, Coordination,Bed Mobility, Transfers,Gait,Activity Tolerance Progress Towards Goals Slow Progress due to Pain,Slow Progress due to Activity Tolerance Assessment Summary Pt is an 78 y/o lady presenting with increased pain and decreased mobility tolerance same day left TKR. Pt gets to EOB with PT and BP does not drop. Recommend up with nsg when agreeable and able to tolerate. Will initiate transfers, gait and stair training as pt tolerates if she remains in the acute setting. Anticipate d/c home with who is in the room and her RW is here. She has OPPT set-up in Thursday on 02/01/24. Goals Bed Mobility Goal Independent Transfer Goal Independent,Front Wheeled Walker Gait Goal Independent,Front Wheel Walker Gait Distance 100 Other Goals Pt will ascend and descend 3 steps with right rail ascend and no more than superv assistance to allow safe home entrance. Days to Meet Goals 3 Frequency of Treatment Frequency Of Treatment Twice a Day Treatment Plan Physical Therapy Treatment Plan Bed Mobility Training,Transfer Training,Gait Training, Therapeutic Exercise,Balance Retraining,Post Op Education, Discharge Planning,Hot or Cold Pack,Neuromuscular Re-ed, Coordination Retraining,Manual Therapy Weight Bearing Status Weight Bearing Status Weight Bear as Tolerated Recommendations To Nursing Amount of Assist Needed 2 Person Assist Discharge Recommendations PT Discharge Recommendations Home with Assistance, Outpatient PT Transportation Needs at Discharge Private Vehicle
[2024-01-28] MEDS: LACTATED RINGERS 1,000 ML 100 ML IV (13:59)
--- NOTE | 2024-01-28 14:32 | CM.DANOTE ---
Initial DCP Assessment Note Pt is a 78 yo female, resident of [place], now POD#[address] left TKA by Dr Farrell PCP: Beth Srinivasan Payer: Bill RODRIGUEZ Reviewed chart, met w/patient and spouse Dennise, introduced self and role. Patient lives independently [place] and expects to discharge back home with spouse and family to assist throughout recovery. Patient/spouse request a priority board pass upon discharge as they could not secure a ferry reservation, this CM team can assist once discharge date is known. Patient cleared by PT for home w/outpatient follow up. No barriers identified at this time to patient's safe discharge home w/family to assist; close outpatient f/u recommended. CM team will plan to follow clinical course closely in case any DC needs or concerns arise. ALEX Hi Discharge Planning/Care Management CM Discharge Assessment Start: 01/28/24 14:29 Freq: Status: Active Protocol: Document 01/28/24 14:29 [email or web address] (Rec: 01/28/24 14:32 [id number]) Discharge Planning Assessment Assigned Credit And Collection Manager ALEX Owens DPOA/Assigned Designee Name lynn Carlin Contact Information [phone] Advance Directives? Yes Advance Directives on File No History Provided By Significant Other,Medical Record Prior Living Arrangements House Household Members spouse,family Type of transporation used prior to Drives own vehicle admit Independent with ADL's Yes Is patient alert and oriented? Yes Patient/Family Preference OP PT Therapy Barriers to Discharge No Discharge Plan Home Transportation Arrangement Spouse Referrals Initiated None needed
--- NOTE | 2024-01-28 16:05 | OT.IPNOTE ---
Spoke to pt regarding OT needs and pt states had all equipment needs. Pt had R TKA in 12/2017 and states able to assist pt with all needs. Per DAIRY LAB TECHNICIAN, pt is SBA. Therefore discharge OT eval orders.
--- NOTE | 2024-01-28 18:25 | PC.NURSE ---
Patient arrived this afternoon from PACU A&OX4, VSS, afebrile on RA. Initially SBP elevatated but improved. Patient with zeyad dressing to L knee, C/D/I flashing green light. She reports pain well controlled with prn tylenol and oxycodone. She is able to get up to BSC, and void this afternoon. She eats dinner and tolerates that well. IVF LR at 100 ml/hr, continuous pulse ox, scd's, bed alarm, call light within reach, IS encouraged, frequent rounding.
[2024-01-28] MEDS: ASPIRIN EC 81 MG TABLET PO (20:29)
[2024-01-28] MEDS: DOCUSATE 100 MG CAPSULE PO (20:30)
[2024-01-28] MEDS: IBUPROFEN 400 MG TABLET PO (22:16)
[2024-01-28] MEDS: ACETAMINOPHEN 325 MG TABLET 650 MG PO (22:17)
[2024-01-29] MEDS: OXYCODONE IR 5 MG TABLET PO ×5 (03:18→14:48)
[2024-01-29 06:43] LABS: Hematocrit 32.4 % (36-46); Hemoglobin 11.1 g/dL (12.0-16.0)
[2024-01-29] MEDS: DOCUSATE 100 MG CAPSULE PO (08:02)
[2024-01-29] MEDS: IBUPROFEN 400 MG TABLET PO ×2 (08:03→14:11)
[2024-01-29] MEDS: LEVOTHYROXINE 100 MCG TABLET PO (08:03)
[2024-01-29] MEDS: ACETAMINOPHEN 325 MG TABLET 650 MG PO ×2 (08:04→14:11)
[2024-01-29] MEDS: ASPIRIN EC 81 MG TABLET PO (08:04)
[2024-01-29] MEDS: LETROZOLE 2.5 MG TABLET PO (09:03)
--- NOTE | 2024-01-29 09:06 | PT.IPTN ---
Current Diagnoses Unilateral primary osteoarthritis, left knee (01/28/24) Surgery Performed Operation Date: 01/28/24 07:45 Actual Procedures p Total Knee Arthroplasty - Robot(Left) - Mavis Farrell MD Physical Therapy Treatment Note M2 PT-IP Current Condition Start: 01/28/24 12:21 Freq: NEEDED Status: Active Protocol: Document 01/28/24 12:48 MB (Rec: 01/28/24 13:31 MB [id number]) Physical Therapy Current Condition Current Condition Evaluation Date 01/28/24 Treatment Diagnosis L TKA M3 PT-IP Subjective Start: 01/28/24 12:21 Freq: NEEDED Status: Active Protocol: Document 01/29/24 09:54 TS (Rec: 01/29/24 10:14 TS [id number]) Subjective Physical Therapy Visit Type Type Treatment Note Visit Start Time 09:06 Visit Stop Time 09:51 Number of RESIDENT CARE AID Visits 1 Physical Therapy Visit Comments Patient Comments Pt found resting in bed, reports difficulty walking, pain in L calf and some dizziness. She is to be checked for blood clot in L calf. She states she is having a more diffiuclt time than last knee surgery. Pt is agreeable to PT. Therapy Pain Assessment Pain When Pain Assessed During Mobility Pain Present Pain Present Pain Reported Location Left knee Intensity 3 Scale Used Numeric (0 - 10) Description Aching Pain Behaviors Facial Grimacing M4 PT-IP Mobility and Gait Start: 01/28/24 12:21 Freq: NEEDED Status: Active Protocol: Document 01/29/24 09:54 TS (Rec: 01/29/24 10:14 TS [id number]) PT-Bed Mobility Assessment Supine to Sit Supine to Sit Contact Guard Assistance,1 Person Assistance Sit to Supine Sit to Supine Standby Assistance Scooting Scooting to Edge of Bed Standby Assistance PT-Transfer Assessment Sit to and From Stand Sit to and from Stand Standby Assistance,Contact Guard Assistance Comments Mobility Comments Bp in supSupine to sit from flat bed CGA, pt uses gait belt to assist LLE over EOB. Spouse donned gait belt prior to STS. STS from bed SBA with FWW, cues provided for BUE's pushing from bed. BP in standing 144/84. She ambulated ~15' in room with step to gait and heavy UE support. Pt ambulated to w/c ~15', was brought to stairs. STS from w/ c CGA with cues for sequencing . She performed steps x3 with single rail and ALUMINUM POOL INSTALLER assist from spouse, pt requried cues for step sequencing. Descending stairs was difficult for pt and required some encouragement. She was brought back to the room, sit to supine into bed SBA with use of gait belt for LLE. PT was left in bed, all needs met . Gait Assessment Gait Gait Assistance Required: Contact Guard Assist Distance (Feet) 30 Able to Maintain Weight Bearing Status Yes During Gait Assistive Devices Assistive Device Gait Belt,Front Wheeled Walker Orthotic/Prosthetic Devices or Brace: No Gait Deviations General Gait Pattern Antalgic,Decreased Stride Length,Decreased Feet Clearance,Step-to Gait Factors Limiting Gait Function Factors Limiting Gait Function Decreased Activity Tolerance, Decreased Strength,Pain,Poor Balance,Poor Safety Awareness Comments Gait Comments See mobility comments Stair Climbing Assessment Evaluation Level of Assist On Stairs Minimal Assistance,1 Person Assistance Devices Stair Climbing Assistive Devices Right Railing Technique/Endurance Stair Climbing Direction Ascend and Descend Stair Climbing Technique Step to Step Number of Steps Climbed 3 Comments Stair Climbing Comments See mobility comments PT-Balance Assessment Sitting Balance and Reactions Static Sitting Balance Ability Good Dynamic Sitting Balance Ability Fair Standing Balance and Reactions Static Standing Balance Ability Fair Dynamic Standing Balance Ability Fair Device Used FWW M5 PT-IP Objective Assessments Start: 01/28/24 12:21 Freq: NEEDED Status: Active Protocol: Document 01/28/24 12:48 MB (Rec: 01/28/24 13:31 MB [id number]) Orientation Orientation/Cognition Level of Alertness Alert Orientation Name,Age,Birthday,Month,Date, Year,Day of Week,Place, Situation Language Function Ability No Deficits Noted Safety Awareness Decreased Safety Awareness Memory Description No Deficits Noted Gross Range of Motion Upper Extremity ROM Impairments Defer to OT Lower Extremity ROM Assessment Left Impaired Impairments AAROM and AROM 10-70 deg supine for extension and sitting EOB for flexion Strength Comments Strength Comments Pt does not tolerate MMT LLE today and right LE appears functional and ankles are functional Coordination Assessment Gross Coordination Gross Coordination Impaired Sensation Assessment Sensation Gross Sensation WNL Comments Sensation Comments No sensory changes with light touch testing with PT today Muscle Tone Muscle Tone WNL Yes M6 PT-IP Treatment Start: 01/28/24 12:21 Freq: NEEDED Status: Active Protocol: Document 01/29/24 09:54 TS (Rec: 08/16/24 10:14 TS [id number]) Physical Therapy Treatment Education Education Provided Weight Bearing Status,Post-Op Packet,Safety M7 PT-IP Assessment and Plan Start: 01/28/24 12:21 Freq: NEEDED Status: Active Protocol: Document 01/29/24 09:54 TS (Rec: 01/29/24 10:14 TS [id number]) PT Summary Assessment and Plan Potential Rehabilitation Potential Good Summary Impairments Pain,ROM,Strength,Balance, Coordination,Bed Mobility, Transfers,Gait,Activity Tolerance Progress Towards Goals Progressing Toward Goals Assessment Summary Cynthia is making progress with her mobility. She is CGA/SBA for bed mobility with use of gait belt for assisting LLE to EOB. She performed STS x1 SBA from bed and x2 CGA from w/c. She progressed her gait to ~ 30'CGA with FWW. She has a heavy use of UE's on FWW and a step to antalgic gait. She performed stairs x3 with single rail and ALUMINUM POOL INSTALLER from spouse. She has some difficulty descending stairs and requires encouragement. Spouse was instructed in and performed donning of gait belt , STS, gait and stair training with pt. PT is recommending home with assist and outpatient PT. Goals Bed Mobility Goal Independent Transfer Goal Independent,Front Wheeled Walker Gait Goal Independent,Front Wheel Walker Gait Distance 100 Other Goals Pt will ascend and descend 3 steps with right rail ascend and no more than superv assistance to allow safe home entrance. Days to Meet Goals 3 Frequency of Treatment Frequency Of Treatment Twice a Day Treatment Plan Physical Therapy Treatment Plan Bed Mobility Training,Transfer Training,Gait Training, Therapeutic Exercise,Balance Retraining,Post Op Education, Discharge Planning,Hot or Cold Pack,Neuromuscular Re-ed, Coordination Retraining,Manual Therapy Weight Bearing Status Weight Bearing Status Weight Bear as Tolerated Recommendations To Nursing Amount of Assist Needed 1 Person Assist Discharge Recommendations PT Discharge Recommendations Home with Assistance, Outpatient PT Transportation Needs at Discharge Private Vehicle
--- NOTE | 2024-01-29 10:33 | DI.US.S_ITS ---
PROCEDURE: US PERIPH VENOUS LOW EXTREM BI INDICATIONS: R/o DVT TECHNIQUE: Real-time imaging, as well as color and pulse Doppler interrogation, were performed of the deep veins of both legs from the inguinal ligament to the popliteal fossa, with documentation of the visualized calf veins. COMPARISON: None. FINDINGS: Right: The common femoral, femoral, popliteal, and the visualized calf veins are normally compressible, and free of intraluminal thrombus. Color and pulse Doppler demonstrate normal phasic intravascular flow. There is normal augmentation response to distal compression maneuver. Left: The common femoral, femoral, popliteal, and the visualized calf veins are normally compressible, and free of intraluminal thrombus. Color and pulse Doppler demonstrate normal phasic intravascular flow. There is normal augmentation response to distal compression maneuver. IMPRESSION: No findings of deep venous thrombosis in either lower extremity. Approved by: Cole Pichardo M.D. on 01/29/2024 at 16:22
[2024-01-29 12:00] VITALS: BP 137/70; PULSE 90; RESP 17; TEMP 36.1; O2SAT 97
--- NOTE | 2024-01-29 13:18 | CM.DPNOTE ---
DC Note Discharge home anticipated today, met with patient, provided priority board pass. Patient unsure she will leave today r/t a doppler for concern about DVT. If deemed medically stable to do so, patient will be discharging home to [place] with spouse to assist, outpatient therapy. CM team will plan to follow closely in case any addtl discharge needs or concerns arise. [email or web address]
--- NOTE | 2024-01-29 14:00 | PT.IPTN ---
Current Diagnoses Unilateral primary osteoarthritis, left knee (01/28/24) Surgery Performed Operation Date: 01/28/24 07:45 Actual Procedures p Total Knee Arthroplasty - Robot(Left) - Mavis Farrell MD Physical Therapy Treatment Note M2 PT-IP Current Condition Start: 01/28/24 12:21 Freq: NEEDED Status: Active Protocol: Document 01/28/24 12:48 MB (Rec: 01/28/24 13:31 MB [id number]) Physical Therapy Current Condition Current Condition Evaluation Date 01/28/24 Treatment Diagnosis L TKA M3 PT-IP Subjective Start: 01/28/24 12:21 Freq: NEEDED Status: Active Protocol: Document 01/29/24 14:00 AB (Rec: 01/29/24 16:53 AB [id number]) Subjective Physical Therapy Visit Type Type Treatment Note Visit Start Time 14:00 Visit Stop Time 14:40 Number of BEAN SORTER Visits 0 Physical Therapy Visit Comments Patient Comments agreeable to do PT Therapy Pain Assessment Pain When Pain Assessed At Rest Pain Present Pain Present Pain Reported Location Left knee Intensity 5 Scale Used Numeric (0 - 10) Pain Management Techniques Distraction,Modification of Treatment,Re-positioning, Timing of Activity with Medications M4 PT-IP Mobility and Gait Start: 01/28/24 12:21 Freq: NEEDED Status: Active Protocol: Document 01/29/24 14:00 AB (Rec: 01/29/24 16:53 AB [id number]) PT-Bed Mobility Assessment Supine to Sit Supine to Sit Minimal Assistance,1 Person Assistance Sit to Supine Sit to Supine Moderate Assistance,1 Person Assistance PT-Transfer Assessment Sit to and From Stand Sit to and from Stand Contact Guard Assistance,1 Person Assistance,Use of Upper Extremities Equipment Transfer Assistive Device Gait Belt,Front Wheeled Walker Orthotic/Prosthetic Devices or Brace: No Transfers Transfer Destination Toilet Transfer Technique ambulated Transfer Ability Level of Assist Contact Guard Assistance,1 Person Assistance,Use of Upper Extremities Comments Mobility Comments pt supine in bed and spouse in room. pt c/o increase L knee pain. conducted heel slides . educated pt on HEP. pt stated that she did not get a post-op folder from PT. provided pt with post-op folder and reviewed contents. reviewed HEP. pt completed supine to sit min A and cues. needed assistance with LLE mobility to EOB. spouse was able to assist. pt requested to use the toilet. spouse attempted to put safety belt on but unable. re-educated spouse on how to put safety belt on pt and was able to complete. assisted pt with sit to stand and ambulation to the toilet. spouse was able to assist pt with toileting needs. pt ambulated back to EOB. refused to do stair training again this afternoon. emergency room technician came to do US. pt assisted back to supien in bed and spouse was able to assist. positioned pt in bed. Left pt with emergency room technician. Gait Assessment Gait Gait Assistance Required: Contact Guard Assist Distance (Feet) 15 Able to Maintain Weight Bearing Status Yes During Gait Assistive Devices Assistive Device Gait Belt,Front Wheeled Walker Orthotic/Prosthetic Devices or Brace: No Gait Deviations General Gait Pattern Antalgic,Decreased Stride Length,Decreased Feet Clearance Factors Limiting Gait Function Factors Limiting Gait Function Decreased Activity Tolerance, Decreased Strength,Difficulty Following Directions,Limited Range of Motion,Pain,Poor Balance,Poor Safety Awareness M5 PT-IP Objective Assessments Start: 01/28/24 12:21 Freq: NEEDED Status: Active Protocol: Document 01/28/24 12:48 MB (Rec: 01/28/24 13:31 MB [id number]) Orientation Orientation/Cognition Level of Alertness Alert Orientation Name,Age,Birthday,Month,Date, Year,Day of Week,Place, Situation Language Function Ability No Deficits Noted Safety Awareness Decreased Safety Awareness Memory Description No Deficits Noted Gross Range of Motion Upper Extremity ROM Impairments Defer to OT Lower Extremity ROM Assessment Left Impaired Impairments AAROM and AROM 10-70 deg supine for extension and sitting EOB for flexion Strength Comments Strength Comments Pt does not tolerate MMT LLE today and right LE appears functional and ankles are functional Coordination Assessment Gross Coordination Gross Coordination Impaired Sensation Assessment Sensation Gross Sensation WNL Comments Sensation Comments No sensory changes with light touch testing with PT today Muscle Tone Muscle Tone WNL Yes M6 PT-IP Treatment Start: 01/28/24 12:21 Freq: NEEDED Status: Active Protocol: Document 01/29/24 14:00 AB (Rec: 01/29/24 16:53 AB [id number]) Physical Therapy Treatment Exercises Exercises Heel Slides Education Education Provided Post-Op Packet,Safety M7 PT-IP Assessment and Plan Start: 01/28/24 12:21 Freq: NEEDED Status: Active Protocol: Document 01/29/24 14:00 AB (Rec: 01/29/24 16:53 AB [id number]) PT Summary Assessment and Plan Potential Rehabilitation Potential Fair Summary Impairments Pain,ROM,Strength,Balance, Coordination,Sensation,Tone, Cognition,Bed Mobility, Transfers,Gait,Activity Tolerance Progress Towards Goals Slow Progress due to Pain,Slow Progress due to Activity Tolerance Assessment Summary pt requiring min to mod A with bed mobility, CGA for sit to stand transfers and ambulation using FWW. spouse was able to assist pt safely. pt plans to go home today. Goals Bed Mobility Goal Independent Transfer Goal Independent,Front Wheeled Walker Gait Goal Independent,Front Wheel Walker Gait Distance 100 Other Goals Pt will ascend and descend 3 steps with right rail ascend and no more than superv assistance to allow safe home entrance. Days to Meet Goals 3 Frequency of Treatment Frequency Of Treatment Twice a Day Treatment Plan Physical Therapy Treatment Plan Bed Mobility Training,Transfer Training,Gait Training, Therapeutic Exercise,Balance Retraining,Post Op Education, Discharge Planning,Hot or Cold Pack,Neuromuscular Re-ed, Coordination Retraining,Manual Therapy Weight Bearing Status Weight Bearing Status Weight Bear as Tolerated Allowed Weight Bearing Amount (enter % LLE WBAT or #) (%) Discharge Recommendations PT Discharge Recommendations Home with Assistance, Outpatient PT Transportation Needs at Discharge Private Vehicle
--- NOTE | 2024-01-29 14:25 | PM.DS.1 ---
History of Present Illness History of Present Illness Date Patient Seen: 01/29/24 Time Patient Seen: 07:15 Chief complaint: Left TKA robot *OPB* Narrative: Patient is found lying in bed. Has pain along the incision site and into her calfs. She been able to ambulate with physical therapy. Pain is controlled with oral medications. She is ready be discharged home with her . Discharge Providers Provider Discharge Date: 01/29/24 Primary care physician: Beth Srinivasan MD Consults: 01/28/24 06:41 Consult to Anesthesiology Routine Comment: Consulting Provider: Anesthesiologist Reason for consultation: Regional block for post operative pain control Has provider been notified: Yes 01/28/24 11:39 Consult to Discharge Planning Routine Comment: Consult to Occupational Therapy Evaluate & Treat Comment: Physician Instructions: Evaluate and treat Consult to Physical Therapy Evaluate & Treat Comment: Physician Instructions: postop TKA protocol Discharge provider: Georges Puckett PA-C Summary Hospital Course Discharge Diagnosis: Left knee OA Hospital Course: Procedure: left total knee arthroplasty Same procedure as scheduled: Yes Indications: The patient has had progressively worsening left knee pain with radiographic changes consistent with arthritis. Non-operative management has failed and the patient has requested total knee replacement. The risks, benefits and alternatives to surgery were discussed with the patient prior to proceeding. Risks discussed included, but were not limited to, failure to relieve pain, stiffness, infection, nerve damage, deep venous thrombosis, pulmonary embolism, stroke, coma, heart attack, permanent paralysis and , as well as the potential need for eventual revision of the prosthetic. Surgeon: Mavis Farrell Environmental Health Technologist: Georges Puckett Anesthesia Type: General, Spinal and Peripheral nerve block Operative Notes Findings: Severe left knee OA, adequate bone, adequate stability Closure Type: primary Specimen(s): none sent Prosthetic devices, grafts, tissues, transplants, or devices: Farrell and nephew [employer] BCS 2 size 5 femur, size 4 tibia, poly 9, 32 x 7.5 mm patella Estimated Blood Loss (mL): 250 Blood products transfused: none Tourniquet time (min): 74 Status at Discharge Cognitive/behavioral status at discharge: oriented Functional status at discharge: uses cane/walker Overall status at discharge: patient is progressing back to baseline Time Spent with Patient Time spent: Less than 30 minutes Exam Vital Signs (past 8 hours): - 01/29/24 12:00 Temperature 96.9 F L Pulse Rate 90 Respiratory Rate 17 Blood Pressure 137/70 Pulse Oximetry 97 Oxygen Delivery Method Room Air Oxygen Flow Rate 0 Narrative Exam Narrative: Patient found lying comfortably in bed. Dressings clean and intact. Pain and warmth noted to compression along the posterior calf bilaterally. Sensation intact to light touch bilaterally. 5/5 EHL, DF, PF, Knee flexors and extensors. 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 Discharge to home. Ambulate as tolerated with walker. Initiate physical therapy the next 5 to 10 days. Patient has already received postoperative medications and prescribed in their use. Patient is to take aspirin 81 mg twice daily for 6 weeks for DVT prevention. Patient follow-up in clinic in 2 days for wound check. Discharge Plan Discharge Plan Patient Disposition: Home Discharge orders & Medications Discharge Orders: Discharge (Order); Ordered 01/29/24 Ordered By: Goerges Puckett Prescriptions: Continued levothyroxine 100 mcg Tablet 100 mcg PO DAILY zoledronic acid 4 mg Recon Soln 4 mg IV Q6M letrozole 2.5 mg Tablet 2.5 mg PO DAILY acetaminophen 325 mg tablet 975 mg PO TID PRN (Reason: Pain) Follow up/Referrals: Beth Srinivasan MD [Primary Care Provider] - Diet/Activity/Treatments Diet: Diet as Tolerated Activity: Weight bear as tolerated with assistive device Cold/Heat Therapy: Ice over the wound site for 20 minutes every hour as needed for pain relief. Skin/Wound/Dressing Care Report to your healthcare provider any signs of infection, such as:: chills, fever, night sweats, unusual drainage and unusual redness Dressing: Keep dressing clean and dry. Change if it becomes dirty or disrupted. Visit Report/Discharge Packet Instructions: DI for Knee Replacement Stand Alone Forms: Patient Portal/API, Surgery Discharge Discharge Data Primary Care Provider: Beth Srinivasan Attending Provider: Mavis Farrell VTE Deep Vein Thrombosis/Pulmonary Embolism Present on Admission: No
--- NOTE | 2024-01-29 16:54 | PC.NURSE ---
Patient is A&Ox4, VSS, afebrile on RA. She is able to work with PT this a.m. and this afternoon. She is able to complete stairs and walk with SBA using FWW to BR. Patient reports pain is well controlled with prn tylenol, ibuprofen and oxycodone. She c/o pain behind calf with PA this a.m. and BLE venous U/S completed this afternoon at bedside. Patient is cleared for discharge home back to [place] today with . She verbalizes understanding of MARYLOU dressing, activity limitations, site care, s/sx of infections, medications as well as post-op follow up appointment. She is escorted by RN via w/ch to private vehicle for discharge home today in private care with her with all of her belongings including [place] FWW [place].
== END 2024-01-29 15:30 | disposition home or self-care (01) ==
LOC: OR 05:53 → AC 05:54
PROVIDERS: PCP Family Medicine; Referring Provider Orthopaedic Surgery; Visit Provider Orthopaedic Surgery
PROC: 0SRD0JZ Replacement of Left Knee Joint with Synthetic Substitute, Open Approach (ICD-10-PCS; CPT 27447; principal; 2024-01-28 07:45)
DX: M17.12 Unilateral primary osteoarthritis, left knee (principal); G89.18 Other acute postprocedural pain; M25.762 Osteophyte, left knee; D17.24 Benign lipomatous neoplasm of skin and subcutaneous tissue of left leg
CPT/HCPCS: 27447; 27337 ×2; 36415; 64450; 73560; 85014; 85018; 93970; 97110; 97116; 97161; 97530; C1776; C9290; J0171; J0330; J0690; J1170; J2250; J2405; J2704; J3010; J3490

== ENCOUNTER → 2025-03-13 08:34 | Outpatient (CLI) | payer MEDICARE, OTHER, SELFPAY ==
[2024-01-28 12:44] VITALS: BMI 32.1
--- NOTE | 2025-03-13 08:41 | DI.NM.S_ITS ---
PROCEDURE: NM JUDY PERF SPECT R&S PHARM Rest and pharmacological stress myocardial perfusion SPECT with gated imaging and ejection fraction RADIOPHARMACEUTICAL: 12.8 mCi Tc-99m tetrafosmin IV at rest and 25.6 mCi Tc-99m tetrafosmin IV at peak effect of pharmacological stress. [id number] was performed. INDICATIONS: HEART FAILURE WITH REDUCED INJECTION FRACTION TECHNIQUE: Radiopharmaceutical was injected at peak stress test, and also at rest. SPECT images were obtained. SPECT myocardial perfusion images were displayed in short axis, horizontal long axis, and vertical long axis views. Gated images were reviewed using [employer] software. COMPARISON: None. CARDIAC STRESS: A pharmacologic stress test was performed under the supervision of an attending staff, using an infusion of regadenoson 0.4 mg IV. Hemodynamic data: There is normal blood pressure and heart rate response to pharmacologic stress. Symptoms: The patient denied anginal chest pain. EKG: No diagnostic changes of ischemia; rare PACs. FINDINGS: Raw data: There is good myocardial uptake of radiotracer. No significant motion artifacts. Zvrd-he-drdti ratio is 0.24 (normal is less than 0.38 for tetrafosmin tracer). Left ventricle function: Gated images demonstrate normal left ventricular wall thickening. No segmental wall motion abnormalities. No transient ischemic dilation; TID is 0.9 (normal less than 1.3). Left ventricle resting end diastolic volume is 95 mL. Left ventricle stress ejection fraction is >75%; normal range is above 45%. Myocardial perfusion: There is a small size, mild intensity fixed apical lateral wall defect that resolves in prone imaging. No reversible perfusion defects. IMPRESSION: Low risk study. No evidence of pharmacologic induced ischemia. The fixed apical lateral wall defect resolves in prone imaging and is consistent with artifact. Normal LV size with hyperdynamic function. Dictated by: Elizabeth Cassidy D.O. on 03/14/2025 at 8:24 Approved by: Elizabeth Cassidy D.O. on 03/14/2025 at 8:28
== END ==
LOC: NUCM 08:39
PROVIDERS: PCP Family Medicine; Referring Provider Family Medicine; Visit Provider Internal Medicine Cardiovascular Disease
DX: I50.20 Unspecified systolic (congestive) heart failure (principal); I63.511 Cerebral infarction due to unspecified occlusion or stenosis of right middle cerebral artery; R93.1 Abnormal findings on diagnostic imaging of heart and coronary circulation
CPT/HCPCS: 78452; 93017; A9502; J2785